=== PATIENT | female | born 1950 | race Hispanic/Latino ===

== ENCOUNTER 2019-02-20 13:28 | Emergency (ER) | payer MEDICARE, OTHER ==
[~2019-02-20] VITALS: Ht 162.6 cm; Wt 81.6 kg
[~2019-02-20 13:28] MED LIST: VASOTEC5 M1 PO; unknown meds
--- OUTSIDE RECORDS SUMMARY | 2019-02-20 13:31 | XMS REPORT | Clinical Summary ---
Author Author Gregory [facility] Organization [place] [facility] Address Unknown Phone Unavailable Care Team Providers Care Dryerman/Woman Name Role Phone Merced Graves MD PCP Unavailable Allergies Comments Active Allergy Reactions Severity Noted Date Erythromycin Rash Low 10/26/2017 Penicillin Rash Low 10/26/2017 Medications End Date Status Medication Sig Dispensed Refills Start Date Active MV,CALCIUM,MIN/IRON/FOLIC Take by mouth 0 /VITK (MULTI FOR HER daily. ORAL) Active cholecalciferol, vitamin Take 5,000 0 D3, (VITAMIN D3) 1,000 Units by unit capsule mouth daily. Active UNABLE TO FIND daily. 0 Tumeric Active UBIDECARENONE (COQ-10 Take by mouth 0 ORAL) daily. Active CALCIUM CARBONATE Take 500 mg 0 (CALCIUM 500 ORAL) by mouth daily. Active DOCOSAHEXANOIC ACID/EPA Take by 0 (FISH OIL ORAL) mouth. Active MAGNESIUM OXIDE ORAL Take 500 mg 0 by mouth. Active metFORMIN XR Take 1 tablet 30 tablet 8 (GLUCOPHAGE-XR) 500 mg 24 (500 mg 9 hr tablet total) by mouth daily with breakfast. Active losartan-hydrochlorothiaz Take 1 tablet 30 tablet 8 brennen (HYZAAR) 100-25 mg by mouth 9 per tablet daily. Active atorvastatin (LIPITOR) 20 TAKE 1 TABLET 90 tablet 2 MG tabletIndications: BY MOUTH 9 Hyperlipidemia, EVERY DAY unspecified hyperlipidemia type 05/25/2018 Discontinued hydrOXYzine (ATARAX) 25 Take 1 tablet 30 tablet 0 MG tabletIndications: (25 mg total) 8 Anxiety by mouth every 8 (eight) hours as needed for anxiety. 05/10/2018 Discontinued losartan-hydrochlorothiaz Take 1 tablet 30 tablet 5 brennen (HYZAAR) 100-25 mg by mouth 8 per tabletIndications: daily. This Essential hypertension combines your losartan and hydrochloroth iazide into one pill 05/10/2018 Discontinued metoprolol tartrate Take 1 tablet 60 tablet 5 (LOPRESSOR) 25 mg (25 mg total) 8 tabletIndications: by mouth 2 Essential hypertension (two) times a day. 05/25/2018 Discontinued telmisartan (MICARDIS) 80 Take 1 tablet 30 tablet 5 MG tablet (80 mg total) 8 by mouth daily. 05/25/2018 Discontinued amLODIPine (NORVASC) 10 Take 1 tablet 30 tablet 5 mg tablet (10 mg total) 8 by mouth daily. 05/25/2018 Discontinued losartan-hydrochlorothiaz Take 1 tablet 0 brennen (HYZAAR) 100-12.5 mg by mouth per tablet daily. 05/25/2018 Discontinued losartan-hydrochlorothiaz Take 1 tablet 0 brennen (HYZAAR) 100-25 mg by mouth per tablet daily. 12/23/2018 Discontinued atorvastatin (LIPITOR) 20 Take 1 tablet 30 tablet 6 MG tabletIndications: (20 mg total) 8 Hyperlipidemia, by mouth unspecified daily. hyperlipidemia type Default OP ins 12/23/2018 Discontinued losartan-hydrochlorothiaz Take 1 tablet 30 tablet 6 brennen (HYZAAR) 100-25 mg by mouth 8 per tablet daily. 12/23/2018 Discontinued metFORMIN XR Take 1 tablet 30 tablet 6 (GLUCOPHAGE-XR) 500 mg 24 (500 mg 8 hr tablet total) by mouth daily with breakfast. 01/07/2019 Discontinued losartan-hydrochlorothiaz TAKE 1 TABLET 90 tablet 1 brennen (HYZAAR) 100-25 mg BY MOUTH 9 per tablet DAILY 01/04/2019 ciprofloxacin (CIPRO) 500 Take 1 tablet 14 tablet 0 MG tabletIndications: (500 mg 9 Acute cystitis with total) by hematuria mouth 2 (two) times a day for 7 days. Active Problems Problem Noted Date Essential hypertension 10/30/2017 Encounters Care Team Description Date Type Specialty Angelia Soliman MA 01/21/2019 Telephone Internal Medicine [facility] MD Hyperlipidemia, unspecified hyperlipidemia type (Primary Dx) 01/07/2019 Office Visit Internal Medicine Shimon Bhatt MD Acute cystitis with hematuria (Primary Dx) 12/28/2018 Office Visit Family Medicine Angelia Soliman MA 12/28/2018 Telephone Internal Medicine Merced Graves MD 12/27/2018 Refill Internal Medicine Merced Graves MD Type 2 diabetes mellitus with hyperglycemia, without long- term current use of insulin (HCC) (Primary Dx) 12/23/2018 Office Visit Internal Medicine Merced Graves MD Hyperlipidemia, unspecified hyperlipidemia type 12/23/2018 Refill Internal Medicine Daphne Wilks MA Uncontrolled type 2 diabetes mellitus with hyperglycemia (HCC) (Primary Dx) 12/22/2018 Orders Only Internal Medicine Daphne Wilks MA Uncontrolled type 2 diabetes mellitus with hyperglycemia (HCC) (Primary Dx) 12/22/2018 Orders Only Internal Medicine Merced Graves MD Type 2 diabetes mellitus with hyperglycemia, without long- term current use of insulin (HCC) (Primary Dx); Hyperlipidemia, unspecified hyperlipidemia type; Essential hypertension; Class 1 obesity due to excess calories with serious comorbidity and body mass index (BMI) of 34.0 to 34.9 in adult 08/25/2018 Office Visit Internal Medicine Merced Graves MD Type 2 diabetes mellitus with hyperglycemia, without long- term current use of insulin (Primary Dx); Hyperlipidemia, unspecified hyperlipidemia type; Essential hypertension 05/25/2018 Office Visit Internal Medicine Merced Graves MD Essential hypertension 05/15/2018 Refill Internal Medicine Yadiel Clemente MD Teter, Lauren Elizabeth, PA-C Essential hypertension (Primary Dx); Acute nonintractable headache, unspecified headache type 05/14/2018 Emergency Emergency Medicine - 05/15/2018 Angelia Soliman MA 05/14/2018 Telephone Internal Medicine Merced Graves MD Essential hypertension 05/10/2018 Office Visit Internal Medicine after 02/19/2018 Family History Medical History Relation Name Comments Colon cancer Brother in her 60s Colon cancer Brother in his 40s Colon cancer Father in his 30s Dementia Mother Uterine cancer Sister in her 50s Relation Name Status Comments Brother Brother Alive Father Mother Sister Social History Date Tobacco Use Types Packs/Day Years Used Never Smoker Smokeless Tobacco: Never Used Alcohol Use Drinks/Week oz/Week Comments No Sex Assigned at Date Recorded Not on file Industry Job Start Date Occupation Not on file Not on file Not on file Travel End Travel History Travel Start No recent travel history available. Last Filed Vital Signs Time Taken Vital Sign Reading 01/07/2019 9:42 AM CDT Blood Pressure 126/83 01/07/2019 9:42 AM CDT Pulse 55 01/07/2019 9:40 AM CDT Temperature 36.7 C (98 F) 05/15/2018 2:11 AM CDT Respiratory Rate 16 01/07/2019 9:40 AM CDT Oxygen Saturation 100% - Inhaled Oxygen - Concentration 01/07/2019 9:40 AM CDT Weight 87.5 kg (193 lb) 01/07/2019 9:40 AM CDT Height 162.6 cm (5' 4") 01/07/2019 9:40 AM CDT Body Mass Index 33.13 Plan of Treatment Care Team Description Date Type Specialty [facility] MD [address] [place] [address] 04/25/2019 Office Visit Internal Medicine Health Maintenance Due Date Last Done Comments BREAST CANCER SCREENING 2001 COLON CANCER SCREENING 2001 DIABETIC FOOT EXAM 05/25/2019 05/25/2018, 05/25/2018 INFLUENZA VACCINE 08/25/2019 Postponed from 04/28/2019 (Patient Refused) PNEUMOCOCCAL 08/25/2019 Postponed from 2016 POLYSACCHARIDE VACCINE (Patient Refused) AGE 65 AND OVER SHINGLES VACCINES (#1) 08/25/2019 Postponed from 2001 (Patient Refused) URINE MICROALBUMIN 12/23/2019 12/22/2018 65+ PNEUMOCOCCAL VACCINE 12/24/2019 Postponed from 2016 (1 of 2 - PCV13) (Patient Refused) DIABETIC RETINAL EYE EXAM 11/30/2020 11/30/2018 Procedures Comments Procedure Name Priority Date/Time Associated Diagnosis COMPREHENSIVE METABOLIC Routine 01/07/2019 Hyperlipidemia, PANEL 10:19 AM CDT unspecified hyperlipidemia type CBC WITH PLATELET AND Routine 01/07/2019 Hyperlipidemia, DIFFERENTIAL 10:19 AM CDT unspecified hyperlipidemia type URINE CULTURE Routine 12/28/2018 Acute cystitis with 11:50 AM CDT hematuria POC URINALYSIS DIPSTICK Routine 12/28/2018 Acute cystitis with 11:13 AM CDT hematuria POC GLYCOSYLATED Routine 12/23/2018 Type 2 diabetes mellitus HEMOGLOBIN (HGB A1C) 10:46 AM CDT with hyperglycemia, without long-term current use of insulin (HCC) LIPID PANEL Routine 12/22/2018 Uncontrolled type 2 8:31 AM CDT diabetes mellitus with hyperglycemia (HCC) MICROALBUMIN / CREATININE Routine 12/22/2018 Uncontrolled type 2 URINE RATIO 8:31 AM CDT diabetes mellitus with hyperglycemia (HCC) POC GLYCOSYLATED Routine 08/25/2018 Type 2 diabetes mellitus HEMOGLOBIN (HGB A1C) 10:29 AM [employer] WORK[employer] with hyperglycemia, without long-term current use of insulin (HCC) ECG 12-LEAD STAT 05/15/2018 1:30 AM CDT ZZESTIMATED GFR STAT 05/15/2018 12:23 AM CDT TROPONIN STAT 05/15/2018 12:23 AM CDT CREATINE KINASE, TOTAL STAT 05/15/2018 (CPK) 12:23 AM CDT COMPREHENSIVE METABOLIC STAT 05/15/2018 PANEL 12:23 AM CDT PARTIAL THROMBOPLASTIN STAT 05/15/2018 TIME (PTT) 12:23 AM CDT PROTHROMBIN TIME WITH INR STAT 05/15/2018 12:23 AM CDT HC COMPLETE BLD COUNT STAT 05/15/2018 W/AUTO DIFF 12:23 AM CDT URINALYSIS SCREEN AND STAT 05/15/2018 MICROSCOPY, WITH REFLEX 12:15 AM CDT TO CULTURE GRAM STAIN STAT 05/15/2018 12:15 AM CDT URINE CULTURE STAT 05/15/2018 12:15 AM CDT ECG ED PRELIMINARY Routine 05/14/2018 INTERPRETATION 11:51 PM CDT HEMOGLOBIN A1C Routine 05/12/2018 Hyperglycemia 8:04 AM CDT LIPID PANEL Routine 05/12/2018 Obesity (BMI 30-39.9) 8:04 AM CDT after 02/19/2018 Results * CBC with platelet and differential (01/07/2019 10:19 AM CDT) Only the most recent of 2 results within the time period is included. WBC 5.5 3.8 - 10.8 [facility] [employer] [place] RBC 4.21 3.80 - 5.10 [facility] Million/uL [facility] [place] HGB 13.0 11.7 - 15.5 g/dL [employer] [facility] HCT 37.0 35.0 - 45.0 % [employer] [place] MCV 87.9 80.0 - 100.0 fL [employer] [place] MCH 30.9 27.0 - 33.0 pg [facility] [place] MCHC 35.1 32.0 - 36.0 g/dL [employer] [place] RDW 12.9 11.0 - 15.0 % [employer] [place] Platelet count 255 140 - 400 [facility] [employer] [place] MPV 11.2 7.5 - 12.5 fL [employer] [place] Neutrophils, 2,530 1,500 - 7,800 [facility] absolute cells/uL [facility] [place] Lymphocytes, 2,431 850 - 3,900 cells/uL [facility] absolute [facility] [place] Monocytes, 380 200 - 950 cells/uL [facility] [place] Eosinophils, 121 15 - 500 cells/uL [facility] [place] Basophils, 39 0 - 200 cells/uL [facility] absolute [facility] [place] Neutrophils 46 % [employer] [place] Lymphocytes 44.2 % [employer] [place] Monocytes 6.9 % [employer] [place] Eosinophils 2.2 % [facility] [employer] [place] Basophils + RC 0.7 % [employer] [place] Specimen Blood Resulting Agency Comment Performing Organization Information: Site ID: [id number] Name: [facility] Address: [address] [place] [phone] Director: Aide Gilbert Performing Organization Address City/State/Zipcode Phone Number [email or web address] [place] [address] [place] [phone] * Comprehensive metabolic panel (01/07/2019 10:19 AM CDT) Only the most recent of 2 results within the time period is included. [facility] Signature Glucose 131 (H) 65 - 99 mg/dL [facility] Comment: DIAGNOSTICS Fasting [place] reference interval For someone without known diabetes, a glucose value >125 mg/dL indicates that they may have diabetes and this should be confirmed with a follow-up test. BUN, whole 15 7 - 25 mg/dL [employer] blood [facility] [place] Creatinine 0.84 0.50 - 0.99 mg/dL [facility] Comment: DIAG[facility] For patients >49 years of age, [place] the reference limit for Creatinine is approximately 13% higher for people identified as -Spanish. EGFR Non-Afr. 72 > OR=60 [facility] Spanish mL/min/1.73m2 [facility] EGFR 83 > OR=60 [facility] Spanish mL/min/1.73m2 [facility] BUN/creatinine NOT APPLICABLE 6 - 22 (calc) [facility] ratio [facility] Sodium 139 135 - 146 mmol/L [facility] [place] Potassium 4.2 3.5 - 5.3 mmol/L [facility] [place] Chloride 101 98 - 110 mmol/L [facility] [place] CO2 30 20 - 32 mmol/L [facility] [place] Calcium 9.4 8.6 - 10.4 mg/dL [employer] [facility] [place] Protein 6.6 6.1 - 8.1 g/dL [employer] [facility] [place] Albumin, S 4.0 3.6 - 5.1 g/dL [employer] [facility] [place] Globulin, total 2.6 1.9 - 3.7 g/dL [facility] (calc) [facility] Albumin/globuli 1.5 1.0 - 2.5 (calc) [facility] n ratio [facility] Total bilirubin 0.7 0.2 - 1.2 mg/dL [employer] [facility] [place] Alkaline 56 33 - 130 U/L [facility] phosphatase [facility] AST 19 10 - 35 U/L [employer] [facility] [place] ALT 16 6 - 29 U/L [employer] [place] Specimen Blood Resulting Agency Comment Performing Organization Information: Site ID: [id number] Name: [facility] Address: [address] [place] [address] Director: Aide Gilbert Performing Organization Address City/State/Zipcode Phone Number [email or web address] [address] [address] * Urine culture (12/28/2018 11:50 AM CDT) Only the most recent of 2 results within the time period is included. Urine culture SEE NOTE (A) [facility] Comment: [facility] CULTURE, URINE, ROUTINE [place] MICRO NUMBER:[id number] TEST STATUS: FINAL SPECIMEN SOURCE: URINE SPECIMEN QUALITY:ADEQUATE RESULT: Greater than 100,000 CFU/mL of Escherichia coli E.coli -------- -------- INT BRITTNI AMOX/CLAVULANATE S 4 AMPICILLIN R >=32 AMP/SULBACTAM R >=32 CEFAZOLIN NR<=4 2 CEFEPIME S <=1 CEFTRIAXONE S <=1 CIPROFLOXACIN S <=0.25 GENTAMICIN S <=1 IMIPENEM S <=0.25 LEVOFLOXACIN S <=0.12 NITROFURANTOIN S <=16 PIP/TAZOBACTAM S <=4 TOBRAMYCIN S <=1 TRIMETHOPRIM/SULFA S <=20 S=SusceptibleI=Intermediat eR=Resistant*=Not Tested NR=Not ReportedNN=See Therapy Comments THERAPY COMMENTS Note 1: For infections other than uncomplicated UTI caused by E. coli, K. pneumoniae or P. mirabilis: Cefazolin is resistant if BRITTNI > or=8 mcg/mL. (Distinguishing susceptible versus intermediate for isolates with BRITTNI < or=4 mcg/mL requires additional testing.) Note 2: For uncomplicated UTI caused by E. coli, K. pneumoniae or P. mirabilis: Cefazolin is susceptible if BRITTNI <32 mcg/mL and predicts susceptible to the oral agents cefaclor, cefdinir, cefpodoxime, cefprozil, cefuroxime, cephalexin and loracarbef. Specimen Urine Resulting Agency Comment Performing Organization Information: Site ID: [id number] Name: [facility] Address: [address] [place] [phone] Director: Aide Gilbert Performing Organization Address City/State/Zipcode Phone Number [email or web address] [place] [phone] * POC urinalysis dipstick (12/28/2018 11:13 AM CDT) Color urine, Dark Yellow POC Clarity urine, Cloudy POC Glucose urine, Negative Negative POC Bilirubin Negative Negative urine, POC Ketones urine, Negative Negative POC Specific 1.015 1.005 - 1.030 gravity urine, POC Blood urine, Moderate (A) Negative POC pH urine, POC 6.0 5.0, 5.5, 6.0, 6.5, 7.0, 7.5, 8.0, 8.5 Protein urine, 2+ (A) Negative POC Urobilinogen <2.0 <2.0 urine, POC Nitrite urine, Positive (A) Negative POC Leukocyte Large (A) Negative esterase urine, POC Specimen Urine * POC glycosylated hemoglobin (Hb A1C) (12/23/2018 10:46 AM CDT) Only the most recent of 2 results within the time period is included. Pathologist [facility] POC Hemoglobin 6.5 % A1C Specimen Blood * Microalbumin / creatinine urine ratio (12/22/2018 8:31 AM CDT) [facility] Creatinine, 118 20 - 275 mg/dL [facility] urine, random [facility] [place] Microalbumin, <0.2 See Note: mg/dL [facility] urine Comment: DIAGNOSTICS Reference Range: [place] Reference Range Not established Microalbumin/cr NOTE <30 mcg/mg creat [facility] eatinine ratio Comment: DIAGNOSTICS The microalbumin value is less LYNCH than 0.2 mg/dL therefore we are unable to calculate excretion and/or creatinine ratio. The ADA defines abnormalities in albumin excretion as follows: Category Result (mcg/mg creatinine) Normal <30 Microalbuminuria 30-299 Clinical albuminuria > NM=380 The ADA recommends that at least two of three specimens collected within a 3-6 month period be abnormal before considering a patient to be within a diagnostic category. Specimen Urine Narrative Performed At FASTING:YES [facility] FASTING: YES Resulting Agency Comment Performing Organization Information: Site ID: [id number] Name: [facility] Address: [address] [place] [phone] Director: Aide Gilbert Performing Organization Address City/State/Zipcode Phone Number [email or web address] [place] [phone] * Lipid panel (12/22/2018 8:31 AM CDT) Only the most recent of 2 results within the time period is included. [facility] Cholesterol, 171 <200 mg/dL [employer] total [employer] [place] HDL cholesterol 55 >50 mg/dL [employer] [place] Triglycerides 97 <150 mg/dL [facility] [place] LDL cholesterol 97 mg/dL (calc) [facility] calculated Comment: DIAGNOSTICS Reference range: <100 [place] Desirable range <100 mg/dL for primary prevention; <70 mg/dL for patients with CHD or diabetic patients with > or=2 CHD risk factors. LDL-C is now calculated using the Elvie calculation, which is a validated novel method providing better accuracy than the Friedewald equation in the estimation of LDL-C. Álvaro FERNANDES et al. RACHEL. 2013;310(19): 4283-9599 (http://education.Offerboard.FastPay/faq/BIL821) Cholesterol/HDL 3.1 <5.0 (calc) [facility] [employer] [facility] [place] Non-HDL 116 <130 mg/dL (calc) [facility] cholesterol Comment: DIAGNOSTICS For patients with diabetes [place] plus 1 major ASCVD risk factor, treating to a non-HDL-C goal of <100 mg/dL (LDL-C of <70 mg/dL) is considered a therapeutic option. Specimen Blood Narrative Performed At FASTING:YES [facility] FASTING: YES Resulting Agency Comment Performing Organization Information: Site ID: [id number] Name: [facility] Address: [address] [place] [phone] Director: Aide Gilbert Performing Organization Address City/[facility] Phone Number [email or web address] [address] [phone] * ECG 12 lead (05/15/2018 1:30 AM CDT) Ventricular 57 [facility] rate Atrial rate 57 [facility] NM interval 158 [facility] QRSD interval 104 [facility] QT interval 446 [facility] QTC interval 434 [facility] P axis 1 46 [facility] QRS axis 1 6 [facility] T wave axis 25 [facility] EKG impression Sinus bradycardia-Otherwise [facility] MUSE normal ECG-In automated comparison with ECG of 31-OCT-2017 00:48,-premature ventricular complexes are no longer present-Nonspecific T wave abnormality, improved in Anterolateral leads- Specimen Performing Organization Address City/[facility]/Zipcode Phone Number [employer] [address] [place] [address] * Estimated GFR (05/15/2018 12:23 AM CDT) [facility] GFR Non Af Amer 72 mL/min/1.73 m2 [facility] DEPARTMENT OF PATHOLOGY [facility] GFR Af Amer 87 mL/min/1.73 m2 [facility] Comment: DEPARTMENT OF Chronic kidney disease: <60 PATHOLOGY AND mL/min/1.73m2 GENOMIC Kidney failure: <15 MEDICINE mL/min/1.73m2 The estimated GFR is calculated from the IDMS-traceable Modification of Diet in Renal Disease Equation. The accuracy of the calculation is poor when the creatinine is normal. Calculated values >90 mL/min/1.73m2 are not reported. This equation has not been validated in children (<18 years), women, the elderly (>70 years), or ethnic groups other than Caucasians and Americans. Specimen Plasma specimen Performing Organization Address [facility] Phone Number [address] [place] [address] PATHOLOGY [facility] * Troponin (05/15/2018 12:23 AM CDT) [facility] Troponin <0.300 0.000 - 0.300 ng/mL [facility] Comment: DEPARTMENT OF 0.30 - 1.49 PATHOLOGY AND ng/mlMay GENOMIC indicate increased risk of MEDICINE acute coronary syndrome. >=1.5 ng/ml Consistent with acute myocardial infarction. The diagnostic value of a single normal or non-diagnostic result is questionable.Serial samples at 2-6 hour intervals are required to rule out acute myocardial injury. Specimen Plasma specimen Performing Organization Address [facility] Phone Number [address] [place] [address] [facility] * Partial thromboplastin time, activated (05/15/2018 12:23 AM CDT) [facility] PTT 30.2 23.0 - 36.0 sec [facility] Comment: DEPARTMENT OF PTT therapeutic range for PATHOLOGY AND unfractionated heparin is GENOMIC 61.0-112.0 seconds which MEDICINE corresponds to Anti-Xa 0.3-0.7 U/ml. Specimen Blood Performing Organization Address [facility] Phone Number [address] [place] [address] [facility] * Prothrombin time with INR (05/15/2018 12:23 AM CDT) Pathologist [facility] Prothrombin 13.1 12.0 - 15.0 sec [facility] time DEPARTMENT OF PATHOLOGY AND GENOMIC MEDICINE INR 1.0 [facility] Comment: DEPARTMENT OF The International Normalized PATHOLOGY AND Ratio (INR) is a therapeutic GENOMIC monitoring tool for patients MEDICINE who are stable on oral anticoagulant therapy. An INR of 2.0-3.0 is suggested for deep vein thrombosis/pulmonary embolism. Specimen Blood Performing Organization Address [facility] Phone Number [facility] OF [address] [place] [address] [place] [address] PATHOLOGY AND GENOMIC MEDICINE * Creatine kinase, total (CPK) (05/15/2018 12:23 AM CDT) Pathologist [facility] Creatine kinase 109 26 - 192 U/L [facility] DEPARTMENT OF PATHOLOGY AND GENOMIC MEDICINE Specimen Plasma specimen Performing Organization Address [facility] Phone Number [address] [place] [phone] PATHOLOGY AND [facility] MEDICINE * Urinalysis screen and microscopy, with reflex to culture (05/15/2018 12:15 AM CDT) Pathologist [facility] Specimen site Clean catch [facility] DEPARTMENT OF PATHOLOGY AND GENOMIC MEDICINE Color, UA Straw [facility] DEPARTMENT OF PATHOLOGY AND GENOMIC MEDICINE Appearance, UA Clear [facility] DEPARTMENT OF PATHOLOGY AND GENOMIC MEDICINE Specific 1.002 1.001 - 1.035 [facility] gravity, DEPARTMENT OF PATHOLOGY AND GENOMIC MEDICINE pH, UA 6.0 5.0 - 8.5 [facility] DEPARTMENT OF PATHOLOGY AND GENOMIC MEDICINE Protein, UA Negative Negative [facility] DEPARTMENT OF PATHOLOGY AND GENOMIC MEDICINE Glucose, UA Negative Negative [facility] DEPARTMENT OF PATHOLOGY AND GENOMIC MEDICINE Ketones, UA Negative Negative [facility] DEPARTMENT OF PATHOLOGY AND GENOMIC MEDICINE Bilirubin, UA Negative Negative [facility] DEPARTMENT OF PATHOLOGY AND GENOMIC MEDICINE Blood, UA Small (A) Negative [facility] DEPARTMENT OF PATHOLOGY AND GENOMIC MEDICINE Nitrite, UA Negative Negative [facility] DEPARTMENT OF PATHOLOGY AND GENOMIC MEDICINE Urobilinogen, Negative <2.0 [facility] DEPARTMENT OF PATHOLOGY AND GENOMIC MEDICINE Leukocyte Trace (A) Negative [facility] esterase, DEPARTMENT OF PATHOLOGY AND GENOMIC MEDICINE WBC, UA 0-5 0 - 4 /HPF [facility] DEPARTMENT OF PATHOLOGY AND GENOMIC MEDICINE RBC, UA None seen 0 - 5 /HPF [facility] DEPARTMENT OF PATHOLOGY AND GENOMIC MEDICINE Bacteria, UA None seen None seen [facility] DEPARTMENT OF PATHOLOGY AND GENOMIC MEDICINE Yeast, UA None seen [facility] DEPARTMENT OF PATHOLOGY AND GENOMIC MEDICINE Yeast with None seen [facility] pseudohyphae, DEPARTMENT OF UA PATHOLOGY AND GENOMIC MEDICINE Specimen Urine Performing Organization Address City/State/Zipcode Phone Number [facility] [place] [address] [place] [address] PATHOLOGY AND GENOMIC MEDICINE * Gram stain (05/15/2018 12:15 AM CDT) Gram stain No WBC's or organisms seen. [facility] DEPARTMENT result Comment: OF PATHOLOGY Specimen Information AND GENOMIC Specimen Source: Urine MEDICINE Specimen Site: Clean catch Specimen Urine Performing Organization Address City/State/Zipcode Phone Number [facility] DEPARTMENT OF [address] [place] [address] PATHOLOGY AND GENOMIC MEDICINE * ECG ED Preliminary Interpretation - NOT AN ORDER (05/14/2018 11:51 PM CDT) Narrative Performed At Yadiel Clemente MD 05/15/20183:58 AM ECG ED Preliminary Interpretation - Not an Order Performed by: AURELIO HIDALGO Authorized by: YADIEL CLEMENTE ECG reviewed by ED Physician in the absence of a clinic mgr: yes Interpretation: Interpretation: non-specific Rate: ECG rate:57 ECG rate assessment: bradycardic Rhythm: Rhythm: sinus bradycardia QRS: QRS axis:Normal QRS intervals:Normal Conduction: Conduction: normal ST segments: ST segments:Non-specific T waves: T waves: non-specific * Hemoglobin A1c (05/12/2018 8:04 AM CDT) Hemoglobin A1C 7.2 (H) <5.7 % of total Hgb [facility] Comment: DIAGNOSTICS For someone without known LYNCH diabetes, a hemoglobin A1c value of 6.5% or greater indicates that they may have diabetes and this should be confirmed with a follow-up test. For someone with known diabetes, a value <7% indicates that their diabetes is well controlled and a value greater than or equal to 7% indicates suboptimal control. A1c targets should be individualized based on duration of diabetes, age, comorbid conditions, and other considerations. Currently, no consensus exists regarding use of hemoglobin A1c for diagnosis of diabetes for children. Specimen Blood Narrative Performed At FASTING:YES [facility] FASTING: YES Resulting Agency Comment Performing Organization Information: Site ID: [id number] Name: [facility] Address: [address] [place] [address] Director: Aide Gilbert Performing Organization Address City/State/Zipcode Phone Number [facility] [employer] [place] [address] [place] [address] after 02/19/2018 Insurance Type Payer Benefit Subscriber ID Effective Phone Address Plan / Dates Group HMO [facility] MEDICARE [facility] DUAL xxxxxxxxx 2017-P COMPLETE resent [facility] Advance Directives Patient has advance care planning documents on file. For more information, delroy ferguson contact: Gregory Rodriguez [address] [place] [address]
[2019-02-20] MEDS ORDERED: HYDROCODONE/APAP 7.5MG-325MG 1 EA TAB PO PRN (13:45)
--- NOTE | 2019-02-20 15:12 | Diagnostic Imaging Report ---
FOREARM LEFT 2 VIEW - 3 views HISTORY: Pain. 2 COMPARISON: Fell. Swollen wrist. FINDINGS: Bones: No acute displaced fracture. Osseous alignment is within normal limits. Joints: The joint spaces are well-maintained. Soft tissues: The soft tissues appear unremarkable. IMPRESSION: No acute radiographic abnormality. Signed by: Dr. Harpreet Hastings M.D. on 02/20/2019 3:09 PM
--- NOTE | 2019-02-20 15:13 | Diagnostic Imaging Report ---
WRIST COMPLETE LEFT, HAND 3+ VIEWS LEFT - 3 views each HISTORY: Pain. Fell. Swollen. COMPARISON: None available. FINDINGS: Bones: No acute displaced fracture. Osseous alignment is within normal limits. Joints: Degenerative changes in the DIP and PIP joints. Soft tissues: The soft tissues appear unremarkable. IMPRESSION: 1. No acute radiographic abnormality. 2. Osteoarthrosis Signed by: Dr. Harpreet Hastings M.D. on 02/20/2019 3:10 PM
--- NOTE | 2019-02-20 15:30 | NUR ---
XL VELCRO SPLINT PLACE WITH SLING AND ICE GERALDO PER MD ORDER. +RADIAL PULSE BEFORE AND AFTER PLACEMENT.
== END 2019-02-20 16:00 | disposition home or self-care (01) ==
LOC: ER 13:28
DX: S52.572A Other intraarticular fracture of lower end of left radius, initial encounter for closed fracture (principal); I10 Essential (primary) hypertension; Z88.0 Allergy status to penicillin; Z88.8 Allergy status to other drugs, medicaments and biological substances; W01.0XXA Fall on same level from slipping, tripping and stumbling without subsequent striking against object, initial encounter; Y92.019 Unspecified place in single-family (private) house as the place of occurrence of the external cause
CPT/HCPCS: 99284

== ENCOUNTER 2025-06-02 12:20 | Emergency (ER) | payer MEDICARE, OTHER ==
[~2025-06-02] VITALS: Ht 162.6 cm; Wt 77.1 kg
[2025-06-02 12:42] VITALS: PULSE 75; RESP 18; TEMP 98.6
[2025-06-02 14:23] LABS: LEUKOCYTE ESTERASE ,URINE LARGE (NEGATIVE); PROTEIN,URINE DIPSTICK NEGATIVE (NEGATIVE); URINE UROBILINOGEN 0.2 mg/dL (0.2 - 1)
[2025-06-02 14:51] LABS: WBC,URINE (MAN) >50 /HPF (0-5)
[2025-06-02] MEDS ORDERED: CEFDINIR300 MG PO (15:16)
[2025-06-02 15:38] VITALS: BP 129/84; PULSE 89; RESP 17; TEMP 98.3; O2SAT 98
== END 2025-06-02 15:38 | disposition home or self-care (01) ==
LOC: ER 12:49
DX: R30.0 Dysuria (principal); N39.0 Urinary tract infection, site not specified; I10 Essential (primary) hypertension
CPT/HCPCS: 81001; 81003; 87086; 87186; 99283